=== PATIENT | female | born 1940 | race Caucasian/White ===

== ENCOUNTER 2016-08-26 10:56 | Emergency (ER) | payer MEDICARE ==
[2016-08-26 11:22] VITALS: BP 182/81
--- NOTE | 2016-08-26 11:27 | UC ---
Complaint Female HPI - HPI Summary HPI Summary: day 2 of urinary pain and pressure no fevers chills back pain, nausea or vomiting - History Of Current Complaint Chief Complaint: UCGU Stated Complaint: UTI-TYPE SYMPTOMS Time Seen by Provider: 08/26/16 11:26 Hx Obtained From: Patient ?: No Onset/Duration: Sudden Onset, Lasting Days - 2, Still Present Timing: Constant Severity Initially: Mild Severity Currently: Moderate Pain Intensity: 5 Pain Scale Used: 0-10 Numeric Character: Burning Aggravating Factor(s): Urination Alleviating Factor(s): Nothing Associated Signs And Symptoms: Positive: Negative - Allergies/Home Medications Allergies/Adverse Reactions: Allergies Allergy/AdvReac Type Severity Reaction Status Date / Time No Known Allergies Allergy Verified 08/26/16 11:16 PMH/Surg Hx/FS Hx/Imm Hx Previously Healthy: No Endocrine History Of: Reports: Dyslipidemia Denies: Diabetes, Thyroid Disease Cardiovascular History Of: Reports: Hypertension Denies: Cardiac Disorders, Pacemaker/ICD Respiratory History Of: Denies: COPD, Asthma GI/ History Of: Denies: Ulcer - Surgical History Surgical History: Yes Surgery Procedure, Year, and Place: hysterectomy. zach - Family History Known Family History: Positive: None Family History: no cardio vascular issues in family lineage - Social History Occupation: Retired Lives: With Family Alcohol Use: Occasionally Alcohol Amount: 1 DAILY Substance Use Type: None Smoking Status (MU): Never Smoked Tobacco Amount Used/How Often: 1/2 PPD X 30 YEARS Have You Smoked in the Last Year: No When Did the Patient Quit Smoking/Using Tobacco: 10 YEARS AGO Review of Systems Constitutional: Negative Skin: Negative Eyes: Negative ENT: Negative Respiratory: Negative Cardiovascular: Negative Gastrointestinal: Negative Genitourinary: Dysuria, Frequency, Urgency Motor: Negative Neurovascular: Negative Musculoskeletal: Negative Neurological: Negative Psychological: Negative All Other Systems Reviewed And Are Negative: Yes Physical Exam Triage Information Reviewed: Yes Appearance: Well-Appearing, No Pain Distress, Well-Nourished Vital Signs: Initial Vital Signs Temp 98.2 F 08/26/16 11:18 Pulse 76 08/26/16 11:18 Resp 16 08/26/16 11:18 BP 182/81 08/26/16 11:18 Pulse Ox 97 08/26/16 11:18 Vital Signs Reviewed: Yes Eye Exam: Normal Eyes: Positive: Conjunctiva Clear ENT Exam: Normal ENT: Positive: Normal ENT inspection, Hearing grossly normal, Pharynx normal, TMs normal. Negative: Nasal congestion, Nasal drainage, Tonsillar swelling, Tonsillar exudate, Trismus, Muffled/hoarse voice Dental Exam: Normal Neck exam: Normal Neck: Positive: Supple, Nontender, No Lymphadenopathy Respiratory Exam: Normal Respiratory: Positive: Chest non-tender, Lungs clear, Normal breath sounds, No respiratory distress, No accessory muscle use Cardiovascular Exam: Normal Cardiovascular: Positive: RRR, No Murmur, Pulses Normal, Brisk Capillary Refill Abdominal Exam: Normal Abdomen Description: Positive: No Organomegaly, Soft, Other: - supra pubic discomfort. Negative: CVA Tenderness (R), CVA Tenderness (L) Bowel Sounds: Positive: Present Musculoskeletal Exam: Normal Musculoskeletal: Positive: Strength Intact, ROM Intact, No Edema Neurological Exam: Normal Neurological: Positive: Alert, Muscle Tone Normal Psychological Exam: Normal Skin Exam: Normal Diagnostics - Laboratory Diagnostic Studies Completed/Ordered: +Leuks, +blood Complaint Female Dx - Course Course Of Treatment: Increase fluids, Macrobid, prn pyridium, information regarding hypertension and DASH Diet follow in two weeks with pcp - Differential Dx/Diagnosis Differential Diagnosis/HQI/PQRI: Renal Colic, Urinary Tract Infection Provider Diagnoses: UTI, Hypertension in poor control Discharge - Discharge Plan Condition: Stable Disposition: HOME Prescriptions: Nitrofurantoin Monohyd Macro [Macrobid] 100 mg PO BID #20 cap Phenazopyridine TAB* [Pyridium 100 mg TAB*] 100 mg PO TID PRN #9 tab PRN Reason: urinary pain/burning/ urgency Patient Education Materials: Phenazopyridine (By mouth), Urinary Tract Infection in Women (ED), DASH Eating Plan (ED), Hypertension (ED) Referrals: David Hyman MD [Primary Care Provider] - 2 Weeks
== END 2016-08-26 12:00 | disposition home or self-care (01) ==
LOC: UCEAST 10:56
DX: N39.0 Urinary tract infection, site not specified (principal); I10 Essential (primary) hypertension; E78.5 Hyperlipidemia, unspecified; Z90.49 Acquired absence of other specified parts of digestive tract; Z87.891 Personal history of nicotine dependence
CPT/HCPCS: 81003; 87077; 87086; 87186; 99212; G0463